=== PATIENT | female | born 1985 | race Caucasian/White ===

== ENCOUNTER 2016-11-03 13:53 | Emergency (ER) | payer BC ==
[~2016-11-03] VITALS: Wt 100.0 kg
[2016-11-03] MEDS ORDERED: KETOROLAC 30 MG INJ IM STA (14:54)
[2016-11-03] MEDS ORDERED: HYDROCODONE/APAP (5/325) TAB PO ONE (15:00)
[2016-11-03 16:26] LABS: URINE BLOOD (Dip) POC Negative (NEGATIVE)
--- NOTE | 2016-11-03 17:04 | RADRPT ---
PROCEDURE: XR Lumbar Spine. CLINICAL INDICATION: Low back pain. TECHNIQUE: Two views of the lumbar spine are available for review COMPARISON: None available FINDINGS: The vertebral bodies maintain normal height. There are no acute fractures. There is minimal right c onvex curvature of the thoracolumbar spine. There is mild disk space narrowing at L4-L5 with mild f acet arthropathy. The remaining disk spaces are maintained. There is no spondylolisthesis. The bilateral sacroiliac joints and sacral and the sacral arcuate lines are intact. RPTAT: ZZ IMPRESSION: 1. Mild degenerative disk disease at L4-L5 with facet arthropathy. 2. Minimal right convex curvature of the thoracolumbar spine. .Sarika Gutierres MD, MD Date Time Electronically viewed and signed by .Sarika Gutierres MD, on 11/03/2016 17:03 .T/
--- NOTE | 2016-11-03 17:13 | ERD ---
ER Documentation Chief Complaint Date/Time DATE: 11/03/16 TIME: 17:09 Chief Complaint low back pain radiating to both legs for 2 days. no trauma HPI Patient is a 31-year-old female with history of sciatica presenting to the emergency department for left-sided low back pain with radiation down her leg which is been ongoing intermittently for 1 month. The patient states that on [place] she twisted from side to side and felt her left lower paraspinal lumbar muscle tense up. This incident resolved slowly over a couple of weeks. The patient then reinjured her back about 3 days ago and has had constant 10 out of 10 pain. Patient took some [id number] medication for pain relief at home with no relief of her symptoms. The patient denies any loss of bowel or bladder function, loss of function in her lower extremities or numbness or tingling in her lower extremities. The patient did have an MRI several years ago which showed a bulging disc in the L-spine but no other abnormalities. The patient denies any chest pain, shortness of breath, fever, chills, nausea, vomiting, diarrhea or other symptoms at this time. ROS All systems reviewed and are negative except as per history of present illness. Medications Home Meds Active Scripts Naproxen* (Naprosyn*) 500 Mg Tablet, 500 MG PO BID Y for PAIN AND/OR INFLAMMATION, #30 TAB Prov:YANIV VENTURA PA-C 11/03/16 Hydrocodone/Acetaminophen ([place] 5-325 Tablet) 1 Each Tablet, 1 TAB PO Q6H Y for PAIN, #10 TAB Prov:YANIV VENTURA PA-C 11/03/16 Cyclobenzaprine Hcl* (Cyclobenzaprine Hcl*) 10 Mg Tablet, 10 MG PO TID, #15 TAB Prov:YANVI VENTURA PA-C 11/03/16 PMhx/Soc Medical and Surgical Hx: pt denies Medical Hx, pt denies Surgical Hx Hx Alcohol Use: No Hx Substance Use: No Hx Tobacco Use: No Smoking Status: Never smoker FmHx Noncontributory for chief complaint Physical Exam Vitals Vital Signs Date Time Temp Pulse Resp B/P Pulse Ox O2 Delivery O2 Flow Rate FiO2 11/03/16 13:56 97.8 73 20 116/72 97 Physical Exam INITIAL VITAL SIGNS: Reviewed by me GENERAL: The patient is well developed and appropriate for usual state of health in no apparent distress HEENT: Pupils equal, round, and reactive to light. EOMI. There is no scleral icterus. NECK: C-spine is soft and supple, there is no meningismus. There is no cervical lymphadenopathy. BACK: Tenderness to palpation of the paraspinal muscles of the L-spine on the left. Positive straight leg raise on the left. LUNGS: Clear to auscultation bilaterally. There are no rales, wheezes or rhonchi. HEART: Regular rate and rhythm, no murmurs, clicks, rubs or gallops. ABDOMEN: Soft, non-tender, non-distended. There are bowel sounds in all four quadrants. No rebound or guarding. EXTREMITIES: There is no peripheral cyanosis or edema. No focal swelling or erythema. NEUROLOGICAL: The patient moves all four extremities with 5/5 strength. Cranial nerves II - XII are intact. Slightly altered gait secondary to pain in the left-sided lumbar spine. Alert and oriented SKIN: There is no apparent rash or petechiae. HEME/LYMPHATIC: There is no evidence of excessive bruising or lymphedema. PSYCHIATRIC: The patient does not appear anxious or depressed. Results 24 hrs Laboratory Tests Test 11/03/16 16:27 Bedside Urine Blood Negative Bedside Urine Glucose (UA) Negative Bedside Urine Ketones (LAB) Negative Bedside Urine Leukocyte Esterase (L Negative Bedside Urine Nitrite (LAB) Negative Bedside Urine Protein (LAB) Trace Bedside Urine pH (LAB) 6.0 Current Medications Medications (Trade) Dose Ordered Sig/Josh Route PRN Reason Start Time Stop Time Status Last Admin Dose Admin Ketorolac Tromethamine (Toradol) 30 mg ONCE STAT IM 11/03/16 14:54 11/03/16 17:20 DC 11/03/16 15:14 Acetaminophen/ Hydrocodone Bitart ([place] (5/325)) 1 tab ONCE ONCE PO 11/03/16 15:00 11/03/16 17:20 DC 11/03/16 15:16 Procedures/MDM EMERGENCY DEPARTMENT COURSE / MEDICAL DECISION MAKING: This is a 31-year-old female who comes to the emergency room secondary to complaints of left-sided low back pain. PROCEDURE: XR Lumbar Spine. CLINICAL INDICATION: Low back pain. TECHNIQUE: Two views of the lumbar spine are available for review COMPARISON: None available FINDINGS: The vertebral bodies maintain normal height. There are no acute fractures. There is minimal right convex curvature of the thoracolumbar spine. There is mild disk space narrowing at L4-L5 with mild facet arthropathy. The remaining disk spaces are maintained. There is no spondylolisthesis. The bilateral sacroiliac joints and sacral and the sacral arcuate lines are intact. RPTAT: ZZ IMPRESSION: 1. Mild degenerative disk disease at L4-L5 with facet arthropathy. 2. Minimal right convex curvature of the thoracolumbar spine. Differential diagnosis includes lumbar strain, bulging disc of the L-spine, low back pain with unknown etiology, and others. Primary diagnosis is low back pain. The patient was given p.o. [place] and IM Toradol in the department on reevaluation the patient was feeling improved and was able to ambulate better without as much difficulty. Discharge: I have discussed the lab results and diagnostic findings with the patient and answered any questions or concerns. The patient was discharged with a prescription for [place], naproxen, and Flexeril. The patient was given follow- up information for referral to pain management. The patient was advised she may need additional imaging such as MRI ordered by her primary care physician. The patient was advised to followup with their PMD in 1-2 days and to return to the ED if there are any new or worsening symptoms. The patient understood and agreed with treatment and plan. Departure Diagnosis: Primary Impression: Low back pain Condition: Stable Patient Instructions: Back Pain W/ Sciatica, Causes of Lumbar (Low Back) Pain Additional Instructions: Follow-up with your primary care physician within 1 week. Return to the emergency department immediately should you have any new or worsening symptoms, uncontrolled fevers, or other unexplained symptoms. Take all medications as directed. YANIV VENTURA PA-C Nov 03, 2016 17:13
[2016-11-03] MEDS ORDERED: HYDR-906 PO (17:14)
[2016-11-03] MEDS ORDERED: NAPR-260 PO (17:14)
[2016-11-03] MEDS ORDERED: CYCL-319 PO (17:14)
== END 2016-11-03 17:20 | disposition home or self-care (01) ==
LOC: FTE 13:53
DX: M54.5 Low back pain (principal)
CPT/HCPCS: 72100; 81003; 96372; 99284; J1885